=== PATIENT | male | born 1990 | race Caucasian/White ===

== ENCOUNTER 2024-07-24 15:00 | Emergency (ER) | payer OTHER, SELFPAY ==
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
[2024-07-24 15:05] VITALS: BP 115/70; PULSE 92; RESP 20; TEMP 36.2; O2SAT 100
[2024-07-24] MEDS: KETOROLAC 30 MG/ML VIAL (*BKC) IM (16:24)
[2024-07-24 16:50] VITALS: BP 130/79; PULSE 80; RESP 20; TEMP 36.7; O2SAT 99
== END 2024-07-24 16:50 | disposition home or self-care (01) ==
PROVIDERS: Emergency Provider Internal Medicine Critical Care Medicine
DX: R51.9 Headache, unspecified (principal); V49.50XA Passenger injured in collision with unspecified motor vehicles in traffic accident, initial encounter
CPT/HCPCS: 70450; 72125; 96372; 99284; J1885